=== PATIENT | female | born 1960 | race Caucasian/White ===

== ENCOUNTER 2017-02-22 19:03 | Emergency (ER) | payer OTHER ==
[~2017-02-22] VITALS: Ht 170.2 cm; Wt 117.9 kg
[2017-02-22] MEDS ORDERED: OMEPRAZOLE40 M1 PO (19:18)
--- NOTE | 2017-02-22 20:01 | CT SCAN REPORT ---
EXAMINATION: CT MAXILLOFACIAL WITHOUT CONTRAST CLINICAL INFORMATION: Status post fall on concrete. Pain and swelling. COMPARISON: None TECHNIQUE: Multidetector helical imaging was performed in the axial plane with generation of coronal and sagittal reformatted images. DLP: 774 mGy-cm FINDINGS: OSSEOUS STRUCTURES: There is no acute fracture. The pterygoid plates are intact. The lamina papyracea are intact. The zygomatic arches are intact. The orbital rims are intact. FRONTAL SINUSES AND DRAINAGE PATHWAYS: Normal. MAXILLARY SINUSES AND DRAINAGE PATHWAYS: Normal. ETHMOID SINUSES: Normal. SPHENOID SINUSES AND DRAINAGE PATHWAYS: There is near complete opacification of the left sphenoid chamber with moderate mucoperiosteal thickening of the right. The sphenoethmoidal recesses are opacified. ADDITIONAL RELEVANT FINDINGS: The ostiomeatal complexes are well-aerated. The nasal passages are clear. The carotid canals are normally covered by bone. The ethmoid roofs are symmetric. No periapical disease is seen. The TMJs and orbits are normal. The visualized mastoid air cells are clear. Limited evaluation demonstrates no acute intracranial findings. IMPRESSION: No acute maxillofacial findings. No acute fracture. Significant opacification of the sphenoid sinuses with opacification of the sphenoethmoidal recesses..
--- NOTE | 2017-02-22 20:13 | ED MVC/FALL/TRAUMA COMPLAINT ---
History of Present Illness General Chief Complaint: Fall Stated Complaint: ABRASION TO NOSE, MOUTH PAIN,KNEE PAIN S/P FALL Source: patient, old records Exam Limitations: no limitations Vital Signs & Intake/Output Vital Signs & Intake/Output Vital Signs Date Time Temp Pulse Resp B/P B/P Pulse O2 O2 Flow FiO2 Mean Ox Delivery Rate 02/23 2028 98.8 86 18 145/86 98 Room Air 02/22 1907 97.5 97 16 160/107 96 Room Air ED Intake and Output 02/23 0000 02/22 1200 Intake Total Output Total Balance Patient 260 lb Weight Weight Reported by Patient Measurement Method Allergies Coded Allergies: MDX - Iodine (SWELLING 02/22/17) acetaminophen (From PERCOCET) (VOMITTING 02/22/17) oxycodone (From PERCOCET) (VOMITTING 02/22/17) Reconcile Medications Omeprazole 40 MG CAPSULE.DR 1 CAP PO DAILY ACID REFLUX (Reported) Triage Note: PT FELL ONTO CONCRETE BRUISING NOTED TO NOSE WITH ABRASIONS. PT WITH BILAT KNEE ABRASIONS. PT STATES HER NOSE AND HER TWO FRONT TEETH HURT. Triage Nurses Notes Reviewed? yes Onset: Abrupt Duration: hour(s): (1), better, constant Timing: recent history Severity: mild, moderate Severity Numbers: 3 Injuries/Fall Location: face, lower extremity Method of Injury: fall Loss of Consciousness: no loss of consciousness No Modifying Factors: none Associated Symptoms: DENIES HPI: 56-year-old female with history of pituitary tumor was sent to ER after she had mechanical fall when she tripped over a concrete sustaining abrasions to her face and knees. There is no loss of consciousness she denies any prodromal dizziness light and is prior to the fall. Patient was able to get up herself there is no neck back hip or foot or ankle pain no upper extremity injury. She presents complaining of mild aching pain to her nose. There is no she denies any dental trauma however states that her front 2 teeth are sensitive ever denies pain. No difficulty breathing through her nose no vision changes no headache no tinnitus. Has not taken anything for symptoms no modifying factors or associated symptoms otherwise. (RIYA CASTELLANOS,YAMIL) Past History Travel History Traveled to [place] past 21 day No Medical History Any Pertinent Medical History? see below for history Endocrine: PITUITARY TUMOR Pneumonia Vaccine: 07/11/06 Influenza Vaccine: 07/11/06 Surgical History Surgical History: PITUITARY TUMOR SURGERY Psychosocial History Who do you live with Other (see notes) What is your primary language Nigerian Tobacco Use: Current Daily Use Daily Tobacco Use Amount/Type: => 5 Cigarettes daily ETOH Use: denies use Illicit Drug Use: denies illicit drug use Family History Hx Contributory? No (YAMIL STODDARD) Review of Systems Review of Systems Constitutional: Reports: see HPI. All Other Systems: Reviewed and Negative Comments Review of systems: See HPI, All other systems negative. Constitutional, no chills no fever, no malaise HEENT: No visual changes no sore throat no congestion CARDO: NO CHEST PAIN Skin: no rashes, no change in skin Respiratory: No dyspnea no cough no sputum GI: No nausea no vomiting, no diarrhea, Muscle skeletal: No joint pain, no joint swelling, no back pain, no neck pain, Neurologic: No numbness no confusion, no headache Psych: No stress Heme/endocrine: No bruising Immunology: No lymphadenopathy (YAMIL STODDARD) Physical Exam Physical Exam General Appearance: well developed/nourished, alert, awake Comments: Well-developed well-nourished patient in no apparent distress. HHead/Face: Superficial abrasions noted to the nose, no laceration or ecchymosis no swelling no raccoon eyes no diallo signs, no maxillary/frontal sinus tenderness, no facial swelling Eyes: PERRL, EOMI, no conjunctival injection. No nystagmus Ear:External auditory canals clear Nose: atraumatic.Normal inspection: No bleeding, no septal hematoma Throat: Moist mucous membranes.Pharynx normal. No pharyngeal erythema/exudate seen. No stridor/drooling or assymetry. No swelling or edema. Neck: Supple, no midline or paracervical tenderness, FROM Back: FROM Cardiovascular: Regular rate and rhythms no murmurs rubs or gallops, Respiratory: Chest nontender.There were no bony deformities, no asymmetry. No respiratory distress. Patient speaking in full complete sentences. Breath sounds clear to auscultation bilaterally: NO W/R/R Upper Extremities: full range of motion, atraumatic Hip/Pelvis: Atraumatic/Stable. FROM. No pain with pelvic compression Knee: Superficial abrasions to bilateral anterior knee no swelling no ecchymosis no bleeding ROM. No joint swelling, no effusion. No laxity. Negative callie/ anterior drawer test. No pain with ROM Leg: Atraumatic. Nontender. No edema, 5 out of 5 strength in the lower extremity, normal dorsiflexion of great toe bilaterally, gross sensation is intact, Ankle/Foot: Atraumatic/stable. Skin intact. FROM. No swelling, no effusion. No laxity on exam Pulses: Normal/equal DP/PT pulses bilaterally. Brisk cap refill Neuro: awake, alert, and oriented to person, place and time. There were no obvious focal neurologic abnormalities. Skin: Warm & dry;No appreciable rash on exposed skin Psych: Mood affect normal, normal memory normal judgment. Core Measures ACS in differential dx? No Severe Sepsis Present: No Septic Shock Present: No (YAMIL STODDARD) Progress Differential Diagnosis: C/T/L spine injury, ext injury, ICH, spinal cord injury Plan of Care: Current Medications Sig/Erwin Start time Last Medication Dose Stop Time Status Admin Ibuprofen 800 MG ONCE ONE 02/22 2030 UNVr 02/22 (Motrin) 02/22 CAT scans ordered from triage patient may give Motrin 800 mg by mouth Patient ambulatory around the emergency room with steady gait. I discussed with the patient at length all of their results. I had an extensive conversation regarding need for close follow up with their primary care physician this week as well as return precautions. I answered all of their questions, they feel comfortable with the plan and follow-up care. (YAMIL STODDARD) Diagnostic Imaging: Viewed by Me: CT Scan. Discussed w/RAD: CT Scan. Radiology Impression: PATIENT: LESTER ENG PRESENT AGE: 56 PATIENT ACCOUNT NO: [id number] : 62 LOCATION: [facility] [place] ORDERING PHYSICIAN: BONI CAST MD SERVICE DATE: 02/22/17 EXAM TYPE: CAT - CT MAXILLOFACIAL W/O CON EXAMINATION: CT MAXILLOFACIAL WITHOUT CONTRAST CLINICAL INFORMATION: Status post fall on concrete. Pain and swelling. COMPARISON: None TECHNIQUE: Multidetector helical imaging was performed in the axial plane with generation of coronal and sagittal reformatted images. DLP: 774 mGy-cm FINDINGS: OSSEOUS STRUCTURES: There is no acute fracture. The pterygoid plates are intact. The lamina papyracea are intact. The zygomatic arches are intact. The orbital rims are intact. FRONTAL SINUSES AND DRAINAGE PATHWAYS: Normal. MAXILLARY SINUSES AND DRAINAGE PATHWAYS: Normal. ETHMOID SINUSES: Normal. SPHENOID SINUSES AND DRAINAGE PATHWAYS: There is near complete opacification of the left sphenoid chamber with moderate mucoperiosteal thickening of the right. The sphenoethmoidal recesses are opacified. ADDITIONAL RELEVANT FINDINGS: The ostiomeatal complexes are well-aerated. The nasal passages are clear. The carotid canals are normally covered by bone. The ethmoid roofs are symmetric. No periapical disease is seen. The TMJs and orbits are normal. The visualized mastoid air cells are clear. Limited evaluation demonstrates no acute intracranial findings. IMPRESSION: No acute maxillofacial findings. No acute fracture. Significant opacification of the sphenoid sinuses with opacification of the sphenoethmoidal recesses.. DICTATED BY: CANDE HOLLEY MD DATE/TIME DICTATED:02/22/171953 [employer] SALES REPRESENTATIVE:WILLIAM DATE/TIME TRANSCRIBED:02/22/171953 CONFIDENTIAL, DO NOT COPY WITHOUT APPROPRIATE AUTHORIZATION. <Electronically signed in Other Vendor System> SIGNED BY: CANDE HOLLEY MD 02/22/172000, EXAMINATION: NONCONTRAST HEAD CT NONCONTRAST CERVICAL SPINE CT INDICATION INFORMATION: Fall, trauma. COMPARISON: 11/15/2006 TECHNIQUE: Separate noncontrast CT examinations of the head and cervical spine were performed. Coronal and sagittal images were created for each examination at the technologist workstation. FINDINGS: Head: There is no evidence of acute intracranial hemorrhage or territorial infarction. No abnormal mass effect or midline shift is seen. [place] to white matter differentiation is well preserved. No extra-axial fluid collections are identified. No hydrocephalus. No significant volume loss. There is no abnormal attenuation within the brain parenchyma. The osseous structures and soft tissues are normal. Moderate mucoperiosteal thickening of the sphenoid sinuses. The mastoid air cells and visualized portions of the paranasal sinuses are otherwise well aerated. Cervical spine: There is anatomic alignment of the vertebral bodies and posterior elements. The atlantoaxial and atlantooccipital articulations are intact. Vertebral body heights are maintained. Mild disc space narrowing at C5- C6 and C6-C7 with small endplate osteophytes. No evidence of acute fracture. No prevertebral soft tissue swelling. Visualized portions of the lung apices are unremarkable. The thyroid gland is unremarkable. IMPRESSION: 1. No acute intracranial findings. 2. No acute fracture or malalignment of the cervical spine. DICTATED BY: CANDE HOLLEY MD DATE/TIME DICTATED:02/22/172027 [employer] SAL[employer] REPRESENTATIVE:WILLIAM DATE/TIME TRANSCRIBED:02/22/172027 CONFIDENTIAL, DO NOT COPY WITHOUT APPROPRIATE AUTHORIZATION. <Electronically signed in Other Vendor System> SIGNED BY: CANDE HOLLEY MD 02/22/172035 (YAMIL STODDARD) Departure Departure Time of Disposition: 2037 Disposition: HOME OR SELF CARE Condition: Stable Clinical Impression Primary Impression: Facial contusion Referrals: UTE DOMÍNGUEZ,MALIKA Martin (PCP/Family) Additional Instructions: rest, ice,tyenol or motrin for pain every 4-6 hours. follow up with your pmd, return with any concerns Departure Forms: Customer Survey General Discharge Information (YAMIL STODDARD) PA/STOCK TRADER Co-Sign Statement Statement: ED Attending supervision documentation- [] I saw and evaluated the patient. I have also reviewed all the pertinent lab results and diagnostic results. I agree with the findings and the plan of care as documented in the PA's/STOCK TRADER's documentation. [x] I have reviewed the ED Record and agree with the PA's/STOCK TRADER's documentation. [] Additions or exceptions (if any) to the PAs/STOCK TRADER's note and plan are summarized below: [] (SERENE DOMÍNGUEZ,BONI Mercado)
[2017-02-22 20:28] VITALS: BP 145/86
--- NOTE | 2017-02-22 20:36 | CT SCAN REPORT ---
EXAMINATION: NONCONTRAST HEAD CT NONCONTRAST CERVICAL SPINE CT INDICATION INFORMATION: Fall, trauma. COMPARISON: 11/15/2006 TECHNIQUE: Separate noncontrast CT examinations of the head and cervical spine were performed. Coronal and sagittal images were created for each examination at the technologist workstation. FINDINGS: Head: There is no evidence of acute intracranial hemorrhage or territorial infarction. No abnormal mass effect or midline shift is seen. [place] to white matter differentiation is well preserved. No extra-axial fluid collections are identified. No hydrocephalus. No significant volume loss. There is no abnormal attenuation within the brain parenchyma. The osseous structures and soft tissues are normal. Moderate mucoperiosteal thickening of the sphenoid sinuses. The mastoid air cells and visualized portions of the paranasal sinuses are otherwise well aerated. Cervical spine: There is anatomic alignment of the vertebral bodies and posterior elements. The atlantoaxial and atlantooccipital articulations are intact. Vertebral body heights are maintained. Mild disc space narrowing at C5-C6 and C6-C7 with small endplate osteophytes. No evidence of acute fracture. No prevertebral soft tissue swelling. Visualized portions of the lung apices are unremarkable. The thyroid gland is unremarkable. IMPRESSION: 1. No acute intracranial findings. 2. No acute fracture or malalignment of the cervical spine.
== END 2017-02-22 20:45 ==
LOC: ERH 19:03
DX: S00.83XA Contusion of other part of head, initial encounter (principal); W18.09XA Striking against other object with subsequent fall, initial encounter; Y92.9 Unspecified place or not applicable; Y93.9 Activity, unspecified